=== PATIENT | female | born 1950 | race Caucasian/White ===

== ENCOUNTER 2016-10-04 18:37 | Emergency (ER) | payer MEDICARE ==
--- NOTE | ~2016-10-04 | EKG ---
PATIENT: ABDI CARTER UNIT #: [id number] Ventricular Rate: 71 BPM Atrial Rate: 71 BPM P-R Interval: 170 ms QRS Duration: 146 ms Q-T Interval: 496 ms QTC Calculation(Bezet): 538 ms P Clifford: 21 degrees Calculated R Clifford: -46 degrees Calculated T Clifford: 94 degrees Diagnosis Line: Normal sinus rhythm Diagnosis Line: Left axis deviation Baseline wander Diagnosis Line: Left bundle branch block with repolarization Diagnosis Line: abnormality Diagnosis Line: Abnormal ECG Diagnosis Line: No previous ECGs available Diagnosis Line: Confirmed by NATALIA TORRES MD ([id number]) on 10/06/2016 Diagnosis Line: 5:36:30 PM INTERPRETING MD: MELISSA VELARDE
--- NOTE | ~2016-10-04 | CR72 ---
[facility] A Service of [facility] [place] RADIOLOGY TEXT RESULTS PATIENT: ABDI CARTRE LOCATION: SED : 52 UNIT #: [id number] AGE: [address]: Luke Warner MD SEX: F ORDER DR: [id number] [place] [id number] MR#: [id number] Acc #: [id number] NAME: ABDI CARTER : 1950 SEX: F STUDY DATE/TIME: 10/04/2016 18:43 UNIT: SED ROOM: STUDY DESCRIPTION: CR Chest Single View Portable Attending Physician: Luke Warner M.D. Ordering Physician: [id number] Derrick Meza Primary Care Physician: Yadiel Rodas M.D. MEDICAL IMAGING REPORT This report is preliminary unless electronic signature is present. EXAM Portable chest INDICATIONS 66-year-old female with history of chest pain, nausea, vomiting, diarrhea for 1 week. Comparison with 04/20/2012 FINDINGS The lungs are well expanded. Calcified granuloma in the right base. No acute infiltrate. Heart size normal. The visualized osseous structures are unremarkable. IMPRESSION No active disease Dictated by... Merritt Pena M.D. THIS IS AN ELECTRONICALLY VERIFIED REPORT Merritt Pena M.D. at 10/05/2016 3:37 PM EVERETTE/dona TD: 10/05/2016 08:30 JOB #: [id number] MEDICAL IMAGING REPORT
[~2016-10-04 18:37] MED LIST: AMBIEN; ANASTROZOLE1 MG; AZITHROMYCIN250 MG PO; BENZONATATE PO; CARDIZEM CD120 M1; LIPITOR40 MG; LISINOPRIL20 MG PO; MEDROL4 MG/DOSE- PO; METOPROLOL SUCC50 MG PO; NAPROSYN500 MG PO; NEURONTIN600 MG; PREDNISONE10 MG/DOSE PO; ROBAXIN 750750 M1 PO; SYNTHROID175 MCG; TAMOXIFEN CITRA20 MG PO; TYLENOL #3 PO; XANAX0.5 M1; [UNRECOGNIZED DRUG - REMARK]
[2016-10-04 18:48] LABS: BASOPHIL# 0.1 X10e3 (0-0.3); BASOPHIL% 0.5 % (0-2.5); EOSINOPHIL# 0.2 X10e3 (0-0.7); EOSINOPHIL% 1.2 % (0.0-7.0); HEMATOCRIT 33.4 % (35.0-45.0); LYMPHOCYTE# 2.4 X10e3 (1.0-3.5); LYMPHOCYTE% 16.9 % (17.0-45.0); MEAN CELL VOLUME 92.1 FL (83-96); MEAN CORPUSCULAR HEMOGLOBIN 30.4 PG (28-34); MONOCYTE# 2.7 X10e3 (0-1.0); MONOCYTE% 19.2 % (3.0-12.0); NEUTROPHIL# 8.7 X10e3 (1.5-7.1); NEUTROPHIL% 62.2 % (40-75); PLATELET COUNT 377 X10e3 (140-420); RED BLOOD COUNT 3.63 X10e (3.90-5.30); RED CELL DISTRIBUTION WIDTH 14.1 % (11.0-15.5)
[2016-10-04 18:49] LABS: DIFF IND NO
[2016-10-04 18:56] LABS: INR 1.2; PROTHROMBIN TIME (PATIENT) 13.2 SECONDS (9.5-12.4)
[2016-10-04 19:03] LABS: PARTIAL THROMBOPLASTIN TIME 22.4 SECONDS (25.6-38.1)
[2016-10-04 19:05] LABS: POC - TROPONIN <0.05 ng/mL (<=0.05)
[2016-10-04 19:05] LABS: ALBUMIN SERUM 3.6 g/dL (3.5-5.0); ALKALINE PHOSPHATASE 62 U/L (32-92); ALT (SGPT) 14 U/L (10-40); AST (SGOT) 17 U/L (10-42); BILIRUBIN,TOTAL 0.4 mg/dL (0.2-2.0); BLOOD UREA NITROGEN 57 mg/dL (9-23); BUN/CREATININE RATIO 51.81; CALCIUM SERUM 7.9 mg/dL (8.4-10.2); CARBON DIOXIDE 25 mmol/L (22-31); CHLORIDE 97 mmol/L (100-111); CREATININE SERUM 1.1 mg/dL (0.6-1.4); GLUCOSE FASTING 125 mg/dL (70-110); LIPASE 30 U/L (22-51); PROTEIN TOTAL SERUM 7.3 g/dL (6.0-8.3); SODIUM 132 mmol/L (135-145)
[2016-10-04 19:06] LABS: BILIRUBIN, DIRECT <0.1 mg/dL (0.0-0.2); BILIRUBIN,INDIRECT 0.3 mg/dL (0.0-0.9)
[2016-10-04 21:20] LABS: POC - CKMB 2.5 ng/mL (0.0-7.9)
[2016-10-04 21:21] LABS: POC - TROPONIN <0.05 ng/mL (<=0.05)
== END 2016-10-04 22:41 | disposition home or self-care (01) ==
LOC: SED 18:37
PROVIDERS: Emergency Medicine
DX: R11.2 Nausea with vomiting, unspecified (principal); R19.7 Diarrhea, unspecified; R07.9 Chest pain, unspecified; Z90.710 Acquired absence of both cervix and uterus; Z90.49 Acquired absence of other specified parts of digestive tract; Z88.0 Allergy status to penicillin; Z88.5 Allergy status to narcotic agent; Z88.8 Allergy status to other drugs, medicaments and biological substances
CPT/HCPCS: 36415; 71010; 80048; 80076; 82553; 83690; 83874; 83880; 84484; 85025; 85610; 85730; 93005; 96361; 96374; 96375; 99284; J2405